=== PATIENT | male | born 1995 | race Two or more races ===

== ENCOUNTER 2017-01-09 12:40 | Emergency (ER) | payer OTHER ==
[2017-01-09 12:50] VITALS: BP 107/67
[2017-01-09 14:25] LABS: RAPID STREP SCREEN REAGENT QC YELLOW (YELLOW)
[2017-01-09] MEDS ORDERED: BENZONATATE 100 MG CAPSULE PO STA (14:30)
[2017-01-09] MEDS ORDERED: OXYMETAZOLINE NASAL SPRAY NAS STA (14:30)
[2017-01-09] MEDS ORDERED: IBUPROFEN 400 MG TABLET PO STA (14:30)
[2017-01-09] MEDS ORDERED: BENZONATATE 100 MG CAPSULE PO ONE (14:44)
[2017-01-09] MEDS ORDERED: IBUPROFEN 400 MG TABLET PO ONE (14:44)
[2017-01-09] MEDS ORDERED: OXYMETAZOLINE NASAL SPRAY NAS ONE (14:45)
--- NOTE | 2017-01-09 16:51 | ED Physician Documentation ---
History of Present Illness - Stated complaint Stated Complaint: FLU LIKE SYMPTOMS - Chief complaint Chief Complaint: General - Additonal information Additional information: hx from pt 21 y/o AD [place] male to ER with fever myalgias congestion sinus pressure sore throat and mild cough for a few days some NV no diarrhea no foreign travel, no sick contacts Review of Systems Constitutional: reports: Fever, Myalgias Nose: reports: Congestion Throat: reports: Sore throat Respiratory: reports: Cough GI: reports: Nausea. denies: Diarrhea Immunocompromised: denies: Immunocompromised PD PAST MEDICAL HISTORY - Past Medical History Past Medical History: No - Past Surgical History Past Surgical History: No - Present Medications Home Medications: Ambulatory Orders Medication Instructions Recorded Confirmed Benzonatate [Tessalon] 100 mg PO TID PRN #20 capsule 01/09/17 Oxymetazoline HCl [Afrin] 2 spray NS BID PRN #1 bottle 01/09/17 - Allergies Allergies/Adverse Reactions: Allergies Allergy/AdvReac Type Severity Reaction Status Date / Time No Known Drug Allergies Allergy Verified 01/09/17 12:50 - Social History Does the pt smoke?: Yes Smoking Status: Current every day smoker Does the pt drink ETOH?: Yes ETOH Use: Beer, Liquor Does the pt have substance abuse?: No - Immunizations Immunizations are current?: Yes - POLST Patient has POLST: No PD ED PE NORMAL - Vitals Vital signs reviewed: Yes - General General: Alert and oriented X 3 - HEENT HEENT: PERRL, Ears normal, Moist mucous membranes, Other (nasla congestion, no focal sinus TTP or swelling). No: Pharynx benign (erythema no exudate) - Neck Neck: Supple, no meningeal sign - Cardiac Cardiac: RRR - Respiratory Respiratory: No respiratory distress, Clear bilaterally Results - Vitals Vitals: Vital Signs - 24 hr 01/09/17 12:47 Temperature 37.1 C Heart Rate 105 H Respiratory 16 Rate Blood Pressure 107/67 O2 Saturation 99 Oxygen O2 Source Room air - Labs Labs: Laboratory Tests 01/09/17 13:30 Group A Strep Rapid Negative Departure - Departure Disposition: 01 Home, Self Care Clinical Impression: URI (upper respiratory infection) Qualifiers: URI type: unspecified viral URI Qualified Code(s): J06.9 - Acute upper respiratory infection, unspecified; B97.89 - Other viral agents as the cause of diseases classified elsewhere Condition: Good Instructions: ED URI Viral Follow-Up: [facility] [Provider Group] Prescriptions: Oxymetazoline HCl [Afrin] 2 spray NS BID PRN #1 bottle PRN Reason: nasal sinus ear congestion Benzonatate [Tessalon] 100 mg PO TID PRN #20 capsule PRN Reason: to ease cough Comments: The rapid strep test came back negative - an official culture will be run too Your lungs sound clear - I do not think you have pneumonia You have sinus congestion but no evidence of a sinus infection requiring antibiotics Recommend afrin nose spray (one spray each nostril twice a day for up to three days) and tessalon to ease your cough and tylenol and motrin for fever and body aches. I wrote a note for you to be off work two days Rest and drink plenty of fluids Please follow up with [facility] medical Friday for a recheck if not better Return to the ER sooner if worse Forms: Activity restrictions
== END 2017-01-09 16:59 | disposition home or self-care (01) ==
LOC: ED 12:40
DX: J06.9 Acute upper respiratory infection, unspecified (principal); B97.89 Other viral agents as the cause of diseases classified elsewhere; F17.200 Nicotine dependence, unspecified, uncomplicated
CPT/HCPCS: 87070; 87430; 99283; A9270

== ENCOUNTER 2023-08-10 21:35 | Inpatient (IN) | payer OTHER ==
--- NOTE | 2023-08-10 21:45 | ED Physician Documentation ---
PD HPI ABD PAIN - Stated complaint Stated Complaint: ABD PX - Chief complaint Chief Complaint: Abd Pain - History obtained from History obtained from: Patient - Additional information Additional information: HPI from patient. Patient complains of 1 to 2 days of abdominal pain, predominant across the lower abdomen and most notable in the right lower quadrant. The patient says that the sensation approximated that if previous bouts of constipation, and thus he was trying p.o. laxatives (per patient's description, sounds like he was using magnesium citrate), but this did not lead to any improvement. He denies fever, he has had some mild nausea but no vomiting. No past abdominal surgical history. Pain is worse with movement, palpation. Review of Systems Constitutional: denies: Fever, Chills, Sweats Cardiac: reports: Reviewed and negative Respiratory: reports: Reviewed and negative GI: reports: Abdominal Pain, Nausea. denies: Vomiting, Constipation, Diarrhea : denies: Dysuria PD PAST MEDICAL HISTORY - Past Medical History Past Medical History: Yes Respiratory: Asthma - Past Surgical History Past Surgical History: No - Present Medications Home Medications: Ambulatory Orders Medication Instructions Recorded Confirmed Benzonatate [Tessalon] 100 mg PO TID PRN #20 capsule 01/09/17 08/11/23 Oxymetazoline HCl [Afrin] 2 spray NS BID PRN #1 bottle 01/09/17 08/11/23 Albuterol [Proventil Hfa] See Rx Instructions .ROUTE 08/11/23 08/11/23 .COMPLEX PRN Fluticasone Propion/Salmeterol See Rx Instructions .ROUTE .COMPLEX 08/11/23 08/11/23 [Wixela 100-50 Inhub] - Allergies Allergies/Adverse Reactions: Allergies Allergy/AdvReac Type Severity Reaction Status Date / Time No Known Drug Allergies Allergy Verified 08/10/23 21:41 - Social History Does the pt smoke?: Yes Smoking Status: Current every day smoker Does the pt drink ETOH?: Yes Does the pt have substance abuse?: No - Immunizations Immunizations are current?: Yes - POLST Patient has POLST: No PD ED PE NORMAL - Vitals Vital signs reviewed: Yes - General General: Alert and oriented X 3, No acute distress, Well developed/nourished - Cardiac Cardiac: RRR, No murmur - Respiratory Respiratory: No respiratory distress, Clear bilaterally - Abdomen Abdomen: Soft, Non distended - Back Back: No CVA TTP - Derm Derm: Normal color, Warm and dry PD ED PE EXPANDED - Abdomen Abdomen: Tender to palpation (RLQ tenderness with milder TTP epigastrium and RUQ), Guarding (voluntary guarding). No: Rebound Results - Vitals Vitals: Vital Signs - 24 hr 08/10/23 08/10/23 08/11/23 21:39 23:54 01:00 Temperature 36.2 C L Heart Rate 67 71 78 Respiratory 18 18 16 Rate Blood Pressure 125/73 129/71 135/75 H O2 Saturation 99 98 96 If not protocol : Oxygen Flow, liters/minute 08/11/23 08/11/23 08/11/23 03:00 04:49 05:34 Temperature 37.0 C 98.4 C H Heart Rate 93 128 H 140 H Respiratory 18 20 24 Rate Blood Pressure 129/72 122/77 123/87 H O2 Saturation 97 97 94 If not protocol : Oxygen Flow, liters/minute 08/11/23 08/11/23 08/11/23 06:25 06:37 07:06 Temperature 38.5 C H 98.4 C H 38.1 C H Heart Rate 144 H 140 H 138 H Respiratory 22 24 22 Rate Blood Pressure 114/58 L 123/87 H 93/44 L O2 Saturation 93 94 95 If not protocol 2 2 : Oxygen Flow, liters/minute 08/11/23 07:26 Temperature Heart Rate 130 H Respiratory 26 H Rate Blood Pressure 87/40 L O2 Saturation 96 If not protocol 2 : Oxygen Flow, liters/minute Oxygen O2 Source Nasal cannula - Labs Labs: Laboratory Tests 08/10/23 08/10/23 22:00 22:00 WBC 12.6 H RBC 4.83 Hgb 15.0 Hct 43.6 MCV 90.3 MCH 31.1 H MCHC 34.4 RDW 12.3 Plt Count 298 MPV 9.9 Neut # (Auto) 10.3 H Lymph # (Auto) 1.1 L [place] # (Auto) 1.0 Eos # (Auto) 0.1 Baso # (Auto) 0.1 Absolute Nucleated RBC 0.00 Nucleated RBC % 0.0 Sodium 135 Potassium 3.8 Chloride 101 Carbon Dioxide 27 Anion Gap 7.0 BUN 10 Creatinine 1.0 Estimated GFR (MDRD) 88 L Glucose 104 Calcium 9.7 Total Bilirubin 1.5 H AST 14 ALT 16 Alkaline Phosphatase 41 L Total Protein 7.2 Albumin 4.5 Globulin 2.7 Albumin/Globulin Ratio 1.7 Lipase 29 - Rads (name of study) CT A/P with IV contrast Relevant Findings:: Prelim report reviewed, See rad report PD Medical Decision Making - ED course Complexity details: reviewed results, re-evaluated patient, considered differential, d/w patient ED course: Patient presents with H&P consistent with appendicitis, and the CT scan of the abdomen and pelvis has findings of "acute appendicitis with possible perforation. no periappendiceal abscess identified. Trace pelvic fluid" (per radiologist's interpretation). Initially, he is given Toradol without improvement. Subsequently, he is given 4 mg IV morphine but this also did not give any analgesia. Thus, he is subsequently given 1 mg IV Dilaudid; this had good effect on his pain (per patient report). He required several more doses over the course of long ED stay (while awaiting OR availability). He is kept n.p.o. throughout his ED stay, given IV maintenance fluids (150 cc/h of normal saline). I contacted the surgeon on-call for [facility] (Dr. Ferris). She entered orders into [facility] although there are no beds available at this time so he is thus kept in the emergency department overnight. Plan is to take the patient to the OR in the morning. Late in his ED stay, the patient did spike a fever which improved after IV Ofirmev. Departure - Departure Disposition: ED Transfer to [facility] Clinical Impression: Appendicitis Condition: Stable Discharge Date/Time: 08/11/23 07:33
[2023-08-10] MEDS: SODIUM CHLORIDE 0.9% 1,000 ML IV STA (22:08)
[2023-08-10] MEDS: KETOROLAC 15 MG/ML VIAL IVP STA (22:08)
[2023-08-10 22:18] LABS: BASOPHILS # (AUTO) 0.1 10^3/uL (0.0-0.1); BASOPHILS % (AUTO) 0.4 %; EOSINOPHILS # (AUTO) 0.1 10^3/uL (0.0-0.7); EOSINOPHILS % (AUTO) 1.1 %; HCT - HEMATOCRIT 43.6 % (42.0-52.0); LYMPHOCYTES # (AUTO) 1.1 10^3/uL (1.5-3.5); LYMPHOCYTES % (AUTO) 8.9 %; MEAN CORPUSCULAR HEMOGLOBIN 31.1 pg (27.0-31.0); MEAN CORPUSCULAR HGB CONC 34.4 g/dL (32.0-36.0); MEAN CORPUSCULAR VOLUME 90.3 fL (80.0-94.0); MEAN PLATELET VOLUME 9.9 fL (7.4-11.4); MONOCYTES % (AUTO) 7.9 %; NEUTROPHILS # (AUTO) 10.3 10^3/uL (1.5-6.6); NEUTROPHILS % (AUTO) 81.4 %; PLT - PLATELET COUNT 298 10^3/uL (130-450); RED BLOOD COUNT 4.83 10^6/uL (4.70-6.10); RED CELL DISTRIBUTION WIDTH 12.3 % (12.0-15.0); WHITE BLOOD COUNT 12.6 x10^3/uL (4.8-10.8)
[2023-08-10 22:35] LABS: ALBUMIN 4.5 g/dL (3.2-5.5); ALBUMIN/GLOBULIN RATIO 1.7 (1.0-2.2); BILIRUBIN,TOTAL 1.5 mg/dL (0.2-1.0); CALCIUM 9.7 mg/dL (8.5-10.3); POTASSIUM 3.8 mmol/L (3.5-4.5); TOTAL PROTEIN 7.2 g/dL (6.4-8.9)
[2023-08-10] MEDS ORDERED: iohexoL-300 100 ML VIAL ONE (22:35)
[2023-08-10] MEDS: MORPHINE 2 MG/ML CARPUJECT IVP STA (22:39)
[2023-08-10] MEDS: iohexoL-300 100 ML VIAL IVP ONE (23:56)
--- NOTE | 2023-08-11 01:04 | CT Report ---
PROCEDURE: Abdomen/Pelvis W INDICATIONS: abd pain CONTRAST: 100 ML OMNI 300 TECHNIQUE: After the administration of intravenous contrast, a CT scan of the abdomen and pelvis was performed. Images were recorded and evaluated at appropriate window settings. Reformats: coronal and sagittal. F or radiation dose reduction, the following was used: automated exposure control, adjustment of mA and /or kV according to patient size. COMPARISON: None. FINDINGS: Image quality: Diagnostic. Lower chest: Unremarkable. Liver: No solid mass. Gallbladder and biliary tree: No radiopaque stones or wall thickening. No biliary dilation. Spleen: No splenomegaly. Pancreas: No pancreatic ductal dilation. Adrenals: No adrenal nodule. Kidneys and ureters: Nonobstructing right inferior pole 8 mm calculus (HU 1000). No hydronephrosis. N o renal cystic lesion which requires follow up. No solid mass. Stomach, bowel and peritoneum: Dilated appendix in the right lower quadrant with surrounding fat stra nding and inflammatory changes. No periappendiceal fluid collection. Query asymmetric enhancement of the appendiceal wall and possible extraluminal gas, which may represent perforation. Lymph nodes: No central or retroperitoneal adenopathy. Vessels: No infrarenal aortic aneurysm. PELVIS Reproductive organs: Unremarkable. Bladder: No abnormal wall thickening, accounting for underdistention. Pelvic lymph nodes: No pelvic adenopathy by size criteria. Bones: No aggressive osseous abnormality. Other: No significant ventral or inguinal hernia. Trace free fluid in the pelvis. IMPRESSION: Acute appendicitis with possible perforation. No periappendiceal abscess identified. Trace pelvic flu id. Right inferior pole 8 mm nonobstructing calculus. No hydronephrosis. Reviewed by: Vivian Payne MD, PhD on 08/11/2023 1:02 AM PDT Approved by: Vivian Payne MD, PhD on 08/11/2023 1:02 AM PDT Station ID: [id number]
[2023-08-11] MEDS: PIPERACILLIN/TAZOBACTAM 4.5 GM in SODIUM CHLORIDE 0.9% MINIBAG 100 ML IV STA (01:25)
[2023-08-11] MEDS: HYDROmorphone 1 MG/ML CARPUJECT IVP STA ×3 (01:31→05:34)
[2023-08-11] MEDS ORDERED: ONDANSETRON 4 MG/2 ML VIAL IVP PRN ×2 (01:35→08:09)
[2023-08-11] MEDS: SODIUM CHLORIDE 0.9% 1,000 ML IV STA (04:52)
--- NOTE | 2023-08-11 06:20 | SURGERY HX AND PHYSICAL(T) ---
Surgical History & Physical - Chief Complaint/HPI Chief Complaint: abdominal pain History of Present Illness: 28yoM with migratory RLQ pain x2 days, associated with nausea and anorexia but no emesis. Initially felt he was constipated but pain worsened despite with laxative. Endorses more mild similar episodes in the past that were likely GI upset. Associated right flank pain but denies dysuria. Denies diarrhea or blood in stools. - PMH/PSH/Social Hx Does the pt have a hx of MRSA?: No Neurological History: None Eyes, Ears, Nose, Throat: None Cardiovascular: None Respiratory: Asthma Skin: None Endocrine/Autoimmune: None Gastrointestinal: None Urinary: None Musculoskeletal: None Blood Disorders: None Psychiatric: None PSH Other: NONE Smoking Status: Current every day smoker Does the pt drink ETOH?: Yes Frequency: Occasional Does the pt have substance abuse?: No - Family Hx Family Hx: Unremarkable - Home Meds and Allergies Home Medications: Albuterol [Proventil Hfa] See Rx Instructions .ROUTE .COMPLEX PRN 08/11/23 Fluticasone Propion/Salmeterol [Wixela 100-50 Inhub] See Rx Instructions .ROUTE .COMPLEX 08/11/23 Allergies/Adverse Reactions: Allergies Allergy/AdvReac Type Severity Reaction Status Date / Time No Known Drug Allergies Allergy Verified 08/10/23 21:41 - Review of Systems Constitutional: Poor appetite HEENT: No: Headaches, Visual changes, Eye pain, Dysphasia, Sinus congestion, Post nasal drip, Sore throat, Other Skin: No: Cyanosis, Jaundice, Mottled, Pallor, Diaphoresis, Dryness, Bruising, Puritis, Rash, Other Cardiac: No: AFIB, CAD, CHF, HTN, LA, Syncope, Hyperlipidemia, Mitral valve stenosis, Aortic stenosis, Valve insufficiency, Pulmonary hypertension Respiratory: No: Shortness of breath, Cough, Sputum, Other Gastrointestinal: Nausea, Abdominal pain Gentinourinary: Flank pain (right flank) Neurological: No: Dizziness, Headache, Numbness, Syncope, Tingling, Weakness, Urinary changes, Bowel changes, Other Musculoskeletal: No: Muscle pain, Back pain, Joint pain or stiffness, Other Hematologic: No: Anemia, Bleeding or bruising, Other Psychiatric: No: Depression, Anxiety, Other Endocrinologic: No: Sweating, Cold or heat intolerances, Polyuria, Polydipsia, Other Allergies: No: Asthma, Hives, Eczema, Rhinitis, Other - Vital Signs Heart Rate: 140 Blood Pressure: 123/87 Temperature: 98.4 C Respiratory Rate: 24 O2 Saturation: 94 Weight (kg): 90.809 kg Height: 1.7 m - Physical Exam General Appearance: positive: No acute distress, Alert Eyes Bilatera: positive: Normal inspection ENT: positive: ENT inspection nml Neck: positive: Nml inspection Respiratory: positive: Chest non-tender Cardiovascular: positive: Tachycardia Peripheral Pulses: positive: 2+ Abdomen: positive: No distention, Tenderness (RLQ ttp, negative rebound, negative rosvings) Back: positive: Nml inspection Skin: positive: Color nml Extremities: positive: Non-tender Neurologic/Psychiatric: positive: Oriented x3 - Patient Review Patient Review: Problems were reviewed with the patient during this visit. Medications were reviewed with the patient during this visit. Allergies were reviewed this patient during this visit. Pertinent Tests Reviewed: All pertitent test for this patient were reviewed. - Assessment & Plan Assessment and Plan: Labs: WBC 12.6 with left shift; creatinine/electrolytes WNL CT abdomen/pelvis with IV contrast - dilated inflammed appendix with some fluid in the pelvis 28yoM with acute appendicitis with 2d history of migratory pain. H&P, Labs and CT consistent with acute appendicitis. Initially afebrile and normal hemodynamics. Since admission overnight has become febrile and tachycardic to 140s, getting 2nd liter of crystalloid now. Discussed diagnosis as well as treatment options to include surgery vs antibiotics, including risk of recurrence with antibiotics. Discussed risks of surgery to include pain, bleeding, infection, damage to surrounding structures, need for bowel resection, or conversion to open. He understands and agrees to proceed with surgery. - zosyn started - crystalloid resuscitation in ED - to OR this morning for laparoscopic appendectomy Maddison Ferris DO FACS General Surgeon
[2023-08-11] MEDS: SODIUM CHLORIDE 0.9% 1,000 ML IV ONE (06:22)
[2023-08-11] MEDS: ACETAMINOPHEN 1,000 MG/100 ML 1,000 MG/100 ML BAG IV ONE (06:32)
[2023-08-11] MEDS ORDERED: BUPIVACAINE 0.25% PF 10 ML VIAL ONE (06:57)
[2023-08-11] MEDS: BUPIVACAINE 0.25% PF 30 ML VIAL SUBQ ONE (07:15)
[2023-08-11] MEDS ORDERED: ONDANSETRON 4 MG/2 ML VIAL ONE (07:29)
[2023-08-11] MEDS ORDERED: PROPOFOL 200 MG/20 ML VIAL IVP ONE (07:29)
[2023-08-11] MEDS ORDERED: fentaNYL 100 MCG/2 ML VIAL ONE (07:29)
[2023-08-11] MEDS ORDERED: DEXAMETHASONE 4 MG/ML VIAL ONE (07:29)
[2023-08-11] MEDS ORDERED: LIDOCAINE-PF 2% 10 ML AMP SUBQ ONE (07:29)
[2023-08-11] MEDS ORDERED: MIDAZOLAM 2 MG/2 ML VIAL ONE (07:29)
[2023-08-11] MEDS ORDERED: ROCURONIUM 50 MG/5 ML VIAL ONE ×2 (07:29→08:03)
[2023-08-11] MEDS ORDERED: ceFAZolin 1 GM VIAL ONE (07:59)
--- NOTE | 2023-08-11 08:01 | XRAY Report ---
PROCEDURE: Chest 1V INDICATIONS: chest pain TECHNIQUE: One view of the chest was acquired. COMPARISON: None. FINDINGS: Surgical changes and devices: None. Lungs and pleura: No pleural effusions or pneumothorax. Poor inspiratory effort is seen. Possible at electasis versus small infiltrate in the left retrocardiac region. Mediastinum: Mediastinal contours appear normal. Heart size is normal. Bones and chest wall: No suspicious bony lesions. Overlying soft tissues appear unremarkable. IMPRESSION: Poor inspiratory effort. Suggestion of small infiltrate versus atelectasis in left retrocardiac regio n. Right lung is clear. No pleural effusion or pneumothorax.. Findings are concordant with preliminary interpretation provided by [facility]. Reviewed by: Eduar Chidlress MD on 08/11/2023 8:00 AM PDT Approved by: Eduar Childress MD on 08/11/2023 8:00 AM PDT Station ID: [id number]
[2023-08-11] MEDS ORDERED: ePHEDrine 50 MG/ML VIAL IVP PRN (08:09)
[2023-08-11] MEDS ORDERED: ATROPINE ABBOJECT 1 MG/10 ML SYRINGE IVP PRN (08:09)
[2023-08-11] MEDS ORDERED: METOCLOPRAMIDE 10 MG/2 ML VIAL IVP PRN (08:09)
[2023-08-11] MEDS ORDERED: MORPHINE 2 MG/ML CARPUJECT IVP PRN (08:09)
[2023-08-11] MEDS ORDERED: fentaNYL 100 MCG/2 ML VIAL IVP PRN (08:09)
[2023-08-11] MEDS ORDERED: HYDROmorphone 0.5 MG/0.5 ML SYRINGE IVP PRN (08:09)
[2023-08-11] MEDS ORDERED: NALOXONE 0.4 MG/ML VIAL IVP PRN (08:09)
--- NOTE | 2023-08-11 08:12 | ANESTHESIA ---
Pre-Anesthesia VS, & Labs - Diagnosis appendicitis - Procedure laparoscopic appendectomy Vital Signs: Temp Pulse Resp BP Pulse Ox O2 Flow Rate 38.1 C H 130 H 26 H 87/40 L 96 2 08/11/23 07:06 08/11/23 07:26 08/11/23 07:26 08/11/23 07:26 08/11/23 07:26 08/11/23 07:26 Height: 5 ft 7 in Weight (kg): 90.809 kg Body Mass Index: 31.3 BMI Classification: Obese - NPO >8 hours - Lab Results Current Lab Results: Laboratory Tests 08/10/23 22:00: Sodium 135, Potassium 3.8, Chloride 101, Carbon Dioxide 27, Anion Gap 7.0, BUN 10, Creatinine 1.0, Estimated GFR (MDRD) 88 L, Glucose 104, Calcium 9.7, Total Bilirubin 1.5 H, AST 14, ALT 16, Alkaline Phosphatase 41 L, Total Protein 7.2, Albumin 4.5, Globulin 2.7, Albumin/Globulin Ratio 1.7, Lipase 29 08/10/23 22:00: WBC 12.6 H, RBC 4.83, Hgb 15.0, Hct 43.6, MCV 90.3, MCH 31.1 H, MCHC 34.4, RDW 12.3, Plt Count 298, MPV 9.9, Neut # (Auto) 10.3 H, Lymph # (Auto) 1.1 L, [place] # (Auto) 1.0, Eos # (Auto) 0.1, Baso # (Auto) 0.1, Absolute Nucleated RBC 0.00, Nucleated RBC % 0.0 Fish Bones: 08/10/23 22:00 08/10/23 22:00 Home Medications and Allergies Home Medications: Ambulatory Orders Albuterol [Proventil Hfa] See Rx Instructions .ROUTE .COMPLEX PRN 08/11/23 Fluticasone Propion/Salmeterol [Wixela 100-50 Inhub] See Rx Instructions .ROUTE .COMPLEX 08/11/23 Active Medications Fentanyl (Fentanyl 100 Mcg/2 Ml Vial) 25 - 50 mcg IVP Q5M PRN PRN Reason: BREAKTHROUGH PAIN (2nd Choice) Stop: 08/12/23 08:09 Hydromorphone HCl (Hydromorphone 0.5 Mg/0.5 Ml Syringe) 0.2 - 0.6 mg IVP Q5M PRN PRN Reason: PAIN (First Choice) Stop: 08/12/23 08:09 Piperacillin Sod/Tazobactam (Sod 3.375 gm/ Sodium Chloride) 100 mls @ 200 mls/hr IV Q6H [facility] Lactated Ringer's (Lr) 1,000 mls @ 100 mls/hr IV .Q10H RANGEL Stop: 08/11/23 18:59 Morphine Sulfate (Morphine 2 Mg/Ml Carpuject) 2 mg IVP Q2HR PRN PRN Reason: Abdominal Pain Morphine Sulfate (Morphine 2 Mg/Ml Carpuject) 2 - 4 mg IVP Q5M PRN PRN Reason: PAIN (3rd Choice) Stop: 08/12/23 08:09 Ondansetron HCl (Ondansetron 4 Mg/2 Ml Vial) 4 mg IVP Q6HR PRN PRN Reason: Nausea / Vomiting Ondansetron HCl (Ondansetron 4 Mg/2 Ml Vial) 4 mg IVP ONCE PRN PRN Reason: N/V (First Choice) Stop: 08/12/23 08:09 Sodium Chloride (Sodium Chloride Flush 0.9% 10 Ml Syringe) 10 ml IVP PRN PRN PRN Reason: NEEDED PER PROVIDER ORDERS Sodium Chloride (Sodium Chloride Flush 0.9% 10 Ml Syringe) 10 ml IVP 0100,0900,1700 [facility] Albuterol [Proventil Hfa] See Rx Instructions .ROUTE .COMPLEX PRN 08/11/23 Fluticasone Propion/Salmeterol [Wixela 100-50 Inhub] See Rx Instructions .ROUTE .COMPLEX 08/11/23 Allergies/Adverse Reactions: Allergies Allergy/AdvReac Type Severity Reaction Status Date / Time No Known Drug Allergies Allergy Verified 08/10/23 21:41 Anes History & Medical History - Anesthetic History Anesthesia Complications: reports: No previous complications - Medical History Cardiovascular: reports: None Pulmonary: reports: Asthma Gastrointestinal: reports: None Urinary: reports: Kidney stones Neuro: reports: None Musculoskeletal: reports: None Endocrine/Autoimmune: reports: None Blood Disorders: reports: None Skin: reports: None Smoking Status: Former smoker History of Cancer?: No - Surgical History Other Past Surgical History: NONE Exam General: Alert, Oriented x3 Dental: WNL Mouth Opening: Greater than 4 Fingerbreadths Neck Mobility: Normal Mallampati classification: II Thyromental Distance: greater than 6 cm Respiratory: Lungs clear Cardiovascular: Regular rate Plan Anesthesia Type: General Consent for Procedure(s) Verified and Reviewed: Yes Code Status: Attempt Resuscitation ASA classification: 2-Mild systemic disease Is this case an emergency?: Yes
[2023-08-11] MEDS ORDERED: LACTATED RINGERS 1,000 ML IV SCH ×2 (09:00→10:27)
[2023-08-11] MEDS ORDERED: SUGAMMADEX 200 MG/2 ML VIAL IVP ONE (09:20)
[2023-08-11] MEDS ORDERED: KETOROLAC 30 MG/ML VIAL ONE (09:43)
[2023-08-11] MEDS: LACTATED RINGERS 400 ML IV ONE (10:02)
--- NOTE | 2023-08-11 10:12 | OPERATIVE REPORT ---
Operative Report - General Planned Procedure: Laparoscopic appendectomy Pre-Op Diagnosis: Acute appendicitis Procedure Performed: 1. Laparoscopic appendectomy 2. Partial cecectomy Post Op Diagnosis: 1. Acute perforated appendicitis 2. Feculant peritonitis - Procedure Note Primary Surgeon: Maddison Ferris DO Anesthesia Provider: Charmaine Parker CRNA Anesthesia Technique: General ET tube Pathology: Appendix IV Fluids (mL): 2,400 (crystalloid) Estimated Blood Loss (mL): 25 Urine Output (mL): 450 (delacruz out at end of case) Drain/Tube Type: Neil Swanson flat drain (in RLQ) Indications: 28yoM presented with acute appendicitis to ED, became tachycardic and febrile within hour before surgery. Findings: Feculant peritonitis, appendiceal rupture at base with resultant near in situ avulsion from cecum. Appendix removed with ligasure and resultant cecotomy at site of rupture was stapled across with 60mm green load. Complications: none - Other Other Information/Narrative: The patient was brought to the operating room where universal protocol was observed. He was placed supine on the operating room table, with delacruz and left arm tucked. General anesthesia was induced with ETT. The abdomen was clipped prepped and draped in standard fashion. A time out was performed. Local anesthetic was injected at the umbilicus and a transverse infraumbililcal skin incision was made sharply. The umbilical stalk was elevated and the fascia was incised vertically, the peritoneum was entered with a juan clamp and a 12mm balloon trocar was placed into the peritoneal cavity. The abdomen was insufflated with CO2 gas to a pressure of 15 mmHg which the patient tolerated well. The laparoscope was inserted. 2 additional 5 mm trocars were placed under direct visualization in the left lower quadrant and the suprapubic position. Laparoscopic bowel graspers were introduced into the abdomen. The abdomen was seen to have feculent peritonitis with purulent fluid over the liver and the right upper quadrant as well as in the pelvis. Using careful blunt dissection as well as the LigaSure device and the suction director patient accounting the appendix was slowly and carefully freed from its attachments to the anterior abdominal wall the terminal ileum as well as the cecum. An inflammatory rind on the anterior aspect of the cecum was opened revealing a 1 cm perforation at the base of the appendix that had nearly avulsed to the appendix from the cecum in situ. The appendix was transected the remainder of the way and the mesoappendix was divided likewise with the LigaSure device, placed into an Endo Catch bag and removed removed through the umbilical port. The cecotomy from the in situ avulsion of the appendix was visualized with stool extruding through the cecotomy. The cecotomy was grasped with a bowel grasper and pulled through the jaws of a 60 mm stapler with a green load and a partial cecectomy was completed in order to close the cecotomy. The staple line was inspected and noted to be hemostatic as well as a intact closure of the cecotomy. At this point the feculent and purulent fluid in the abdomen was irrigated and suctioned with 3 L of normal saline focusing on the right upper quadrant above the liver the right colic gutter and the pelvis. The irrigant was returning clear serosanguineous fluid at the completion of irrigation. A 10 mm flat CYNTHIA drain was placed through the suprapubic port with the drain lying in the right lower quadrant and pelvis beneath the partial cecectomy staple line. The drain was sutured in place with 2-0 nylon at the skin. The remaining trocars were removed under direct visualization. The fascia at the umbilical incision was closed with [id number] 0 Vicryl suture. The umbilical wound was irrigated with 150 cc of clean normal saline. Hemostasis within the umbilical wound was ensured with Bovie electrocautery. The skin at the umbilical wound and the left lower quadrant trocar site were both closed with carl and covered with gauze and Tegaderm dressing. The Delacruz was removed. The patient was awoken from general anesthesia. There were no complications. The patient was transferred to the PACU in good condition. Maddison Ferris DO, FACS General Surgeon
--- NOTE | 2023-08-11 10:32 | ANESTHESIA POST OP EVALUATION ---
Anesthesia Post Eval - Post Anesthesia Eval Vitals: Last Vital Signs Temp 36.9 C 08/11/23 10:05 Pulse 107 H 08/11/23 10:25 Resp 20 08/11/23 10:25 BP 91/49 L 08/11/23 10:25 Pulse Ox 98 08/11/23 10:25 O2 Flow Rate 2 08/11/23 07:26 CV Function Including HR & BP: Stable Pain Control: Satisfactory Nausea & Vomiting: Negative Mental Status: Baseline Respiratory Status: Airway Patent Hydration Status: Satisfactory Anesthesia Complications: None
[2023-08-11] MEDS: SODIUM CHLORIDE FLUSH 0.9% 10 ML SYRINGE IVP SCH (11:42)
[2023-08-11] MEDS: PIPERACILLIN/TAZOBACTAM 3.375 GM in SODIUM CHLORIDE 0.9% MINIBAG 100 ML IV SCH (11:42)
[2023-08-11] MEDS: LACTATED RINGERS 1,000 ML IV SCH (12:16)
[2023-08-11] MEDS: MORPHINE 2 MG/ML CARPUJECT IVP PRN (15:10)
[2023-08-11] MEDS: ACETAMINOPHEN 1,000 MG/100 ML 1,000 MG/100 ML BAG IV PRN (16:35)
[2023-08-11] MEDS: HYDROmorphone 0.5 MG/0.5 ML SYRINGE IVP PRN (21:00)
[2023-08-11] MEDS: ALBUTEROL NEB 2.5 MG/3 ML INH PRN (22:18)
[2023-08-12 03:19] LABS: BASOPHILS % (AUTO) 0.4 %; HCT - HEMATOCRIT 41.1 % (42.0-52.0); HGB - HEMOGLOBIN 13.5 g/dL (14.0-18.0); LYMPHOCYTES # (AUTO) 0.6 10^3/uL (1.5-3.5); LYMPHOCYTES % (AUTO) 6.7 %; MEAN CORPUSCULAR HEMOGLOBIN 30.3 pg (27.0-31.0); MEAN CORPUSCULAR HGB CONC 32.8 g/dL (32.0-36.0); MEAN CORPUSCULAR VOLUME 92.2 fL (80.0-94.0); MEAN PLATELET VOLUME 9.4 fL (7.4-11.4); MONOCYTES # (AUTO) 0.7 10^3/uL (0.0-1.0); MONOCYTES % (AUTO) 7.6 %; NEUTROPHILS # (AUTO) 7.2 10^3/uL (1.5-6.6); NEUTROPHILS % (AUTO) 85.1 %; PLT - PLATELET COUNT 202 10^3/uL (130-450); RED BLOOD COUNT 4.46 10^6/uL (4.70-6.10); RED CELL DISTRIBUTION WIDTH 12.5 % (12.0-15.0); WHITE BLOOD COUNT 8.5 x10^3/uL (4.8-10.8)
[2023-08-12 03:36] LABS: ALBUMIN 3.4 g/dL (3.2-5.5); ALBUMIN/GLOBULIN RATIO 1.5 (1.0-2.2); BILIRUBIN,TOTAL 1.6 mg/dL (0.2-1.0); POTASSIUM 4.1 mmol/L (3.5-4.5); TOTAL PROTEIN 5.7 g/dL (6.4-8.9)
[2023-08-12] MEDS: KETOROLAC 15 MG/ML VIAL IVP SCH (04:30)
--- NOTE | 2023-08-12 10:01 | PROVIDER PROGRESS NOTE ---
Subjective - General Admit Date: 08/11/23 Procedure Date: 08/11/23 Post Op Days: 1 Procedure Performed: Laparoscopic appendectomy - Review of Systems Wound/Incisions: positive: Dressing dry and intact Drain Type: CYNTHIA drain Drain Output Description: seropurulent Approximate mls Output: 360cc General: positive: Fever HEENT: positive: No symptoms Pulmonary: positive: No symptoms Cardiovascular: positive: No symptoms Gastrointestinal: positive: Abdominal pain (appropriate degree of postoperative abdominal pain, no peritonitis). negative: Nausea Genitourinary: positive: No symptoms Musculoskeletal: positive: No symptoms Skin: positive: No symptoms - Other Other Information/Narrative: Has had intermittent tachycardia/fever since operation yesterday for acute perforated appendicitis with feculant peritonitis. Normotensive and adequate # voids. Abdominal pain is minimal/within expected, denies nausea, and CYNTHIA drain has 360 of seropurulent fluid out. Pain overnight has improved with addition of dilaudid and toradol (hgb was stable on overnight check). Objective - Patient Data Reviewed Vital Signs: Yes Vital Signs: Vital Signs x48h Temp Pulse Resp BP Pulse Ox O2 Flow Rate 08/12/23 07:39 36.5 C 08/12/23 07:31 36.4 C L 102 H 20 102/52 L 98 2.5 08/12/23 04:10 38.7 C H 127 H 24 103/65 92 3 08/12/23 02:47 92 2 08/12/23 02:42 38.6 C H 125 H 22 114/62 89 L Weight: Weight 08/10/23 08/11/23 08/12/23 23:59 23:59 23:59 Weight (kg) 90.809 kg 90.9 kg Intake & Output: Intake and Output Totals x24h 08/10/23 08/11/23 08/12/23 23:59 23:59 23:59 Intake Total 3600 1200 Output Total 310 55 Balance 3290 1145 - Lab Results Lab Results: 08/12/23 03:13 08/12/23 03:13 Other Lab Results: Lab Results x24hrs 08/12/23 08/12/23 Range/Units 03:13 03:13 WBC 8.5 (4.8-10.8) x10^3/uL RBC 4.46 L (4.70-6.10) 10^6/uL Hgb 13.5 L (14.0-18.0) g/dL Hct 41.1 L (42.0-52.0) % MCV 92.2 (80.0-94.0) fL MCH 30.3 (27.0-31.0) pg MCHC 32.8 (32.0-36.0) g/dL RDW 12.5 (12.0-15.0) % Plt Count 202 (130-450) 10^3/uL MPV 9.4 (7.4-11.4) fL Neut # (Auto) 7.2 H (1.5-6.6) 10^3/uL Lymph # (Auto) 0.6 L (1.5-3.5) 10^3/uL [place] # (Auto) 0.7 (0.0-1.0) 10^3/uL Eos # (Auto) 0.0 (0.0-0.7) 10^3/uL Baso # (Auto) 0.0 (0.0-0.1) 10^3/uL Absolute Nucleated RBC 0.00 x10^3/uL Nucleated RBC % 0.0 /100WBC Sodium 138 (135-145) mmol/L Potassium 4.1 (3.5-4.5) mmol/L Chloride 106 (101-111) mmol/L Carbon Dioxide 27 (21-32) mmol/L Anion Gap 5.0 L (6-13) BUN 8 (6-20) mg/dL Creatinine 1.0 (0.6-1.3) mg/dL Estimated GFR (MDRD) 88 L (>89) Glucose 97 (74-104) mg/dL Calcium 9.0 (8.5-10.3) mg/dL Total Bilirubin 1.6 H (0.2-1.0) mg/dL AST 10 (10-42) IU/L ALT 10 (10-60) IU/L Alkaline Phosphatase 33 L (42-121) IU/L Total Protein 5.7 L (6.4-8.9) g/dL Albumin 3.4 (3.2-5.5) g/dL Globulin 2.3 (2.1-4.2) g/dL Albumin/Globulin Ratio 1.5 (1.0-2.2) - Current Medications Current Medications: Current Medications Generic Name Dose Route Start Last Admin Trade Name Freq PRN Reason Stop Dose Admin Albuterol 2.5 mg 08/11/23 12:21 08/11/23 22:18 Albuterol Neb 2.5 Mg/3 Ml INH 2.5 mg RTQ4H PRN Administration Wheezing Hydromorphone HCl 0.2 mg 08/11/23 19:37 08/12/23 09:11 Hydromorphone 0.5 Mg/0.5 Ml Syringe IVP 0.2 mg Q2H PRN Administration Severe Pain (Level 6-10) Piperacillin Sod/Tazobactam 100 mls @ 200 mls/hr 08/11/23 09:00 08/12/23 09:34 Sod 3.375 gm/ Sodium Chloride IV 200 mls/hr Q6H RANGEL Administration Acetaminophen 1,000 mg in 100 mls @ 400 mls/hr 08/11/23 10:22 08/12/23 09:07 Acetaminophen IV 08/13/23 10:31 400 mls/hr Q6HR PRN Administration Severe Pain (Level 7-10) Lactated Ringer's 1,000 mls @ 125 mls/hr 08/11/23 13:00 08/12/23 01:07 Lr IV 125 mls/hr .Q8H RANGEL Administration Ketorolac Tromethamine 15 mg 08/12/23 04:01 08/12/23 09:10 Ketorolac 15 Mg/Ml Vial IVP 08/18/23 04:00 Not Given Q8HR RANGEL Sodium Chloride 10 ml 08/11/23 09:00 08/12/23 09:34 Sodium Chloride Flush 0.9% 10 Ml Syringe IVP Not Given 0100,0900,1700 [facility] - Physical Exam Wound/Incisions: positive: Dressing dry and intact General Appearance: positive: No acute distress, Alert Respiratory: positive: Chest non-tender, No respiratory distress, Breath sounds nml Cardiovascular: positive: Regular rate & rhythm (intermittent tachycardia) Abdomen: positive: No distention, Tenderness Skin: positive: Color nml, No rash, Warm, Dry Extremities: positive: Non-tender Neurologic/Psychiatric: positive: Oriented x3, Mood/affect nml ABX Reporting Has patient been on IV antibiotics over the past 48 hours?: Yes Impression/Plan - Problem List Problem List: 28yoM POD1 s/p laparoscopic appendectomy (partial cecectomy) for acute per forated appendicitis with feculent peritonitis. Intermitted tachycardia and fever but maintaining pressures and voiding adequately. Fevers and tachycardia not unexpected in setting of feculent peritonitis. Though he is at increased risk of abscess formation or stapleline leak in this setting, his adequately managed pain and CYNTHIA drain output are reassuring at this time. WBC normal, hgb stable, creatinine/lytes WNL. - Trials of clear liquids today - continue IV zosyn for feculant peritonitis - pain control with scheduled offirmev and toradol (will transition to IV once proves tolerating diet), prn oxycodone, prn dilaudid - prn zofran - start dvt ppx with lovenox today, continue SCDs - IS every hour and ambulation TID - continue CYNTHIA drain Maddison Ferris DO, FACS General Surgeon
[2023-08-12] MEDS: ENOXAPARIN 40 MG/0.4 ML SYRINGE SUBQ SCH (11:47)
[2023-08-12] MEDS: oxyCODONE 5 MG TABLET PO PRN (12:25)
[2023-08-12] MEDS ORDERED: ACETAMINOPHEN 1,000 MG/100 ML 1,000 MG/100 ML BAG IV SCH (23:45)
[2023-08-12] MEDS ORDERED: ACETAMINOPHEN 1,000 MG/100 ML 1,000 MG/100 ML BAG IV PRN (23:49)
[2023-08-13] MEDS: ACETAMINOPHEN 1,000 MG/100 ML 1,000 MG/100 ML BAG IV SCH (00:32)
[2023-08-13 07:52] LABS: BASOPHILS % (AUTO) 0.1 %; EOSINOPHILS % (AUTO) 0.3 %; HCT - HEMATOCRIT 39.4 % (42.0-52.0); HGB - HEMOGLOBIN 13.4 g/dL (14.0-18.0); LYMPHOCYTES # (AUTO) 0.9 10^3/uL (1.5-3.5); LYMPHOCYTES % (AUTO) 8.7 %; MEAN CORPUSCULAR HEMOGLOBIN 30.9 pg (27.0-31.0); MEAN CORPUSCULAR VOLUME 90.8 fL (80.0-94.0); MEAN PLATELET VOLUME 9.1 fL (7.4-11.4); MONOCYTES # (AUTO) 0.9 10^3/uL (0.0-1.0); MONOCYTES % (AUTO) 7.8 %; NEUTROPHILS # (AUTO) 8.9 10^3/uL (1.5-6.6); NEUTROPHILS % (AUTO) 82.1 %; PLT - PLATELET COUNT 224 10^3/uL (130-450); RED BLOOD COUNT 4.34 10^6/uL (4.70-6.10); RED CELL DISTRIBUTION WIDTH 12.4 % (12.0-15.0); WHITE BLOOD COUNT 10.9 x10^3/uL (4.8-10.8)
[2023-08-13 08:07] LABS: ALBUMIN 3.1 g/dL (3.2-5.5); ALBUMIN/GLOBULIN RATIO 1.3 (1.0-2.2); BILIRUBIN,TOTAL 1.3 mg/dL (0.2-1.0); CALCIUM 8.8 mg/dL (8.5-10.3); CREATININE 1.1 mg/dL (0.6-1.3); POTASSIUM 3.9 mmol/L (3.5-4.5); TOTAL PROTEIN 5.5 g/dL (6.4-8.9)
[2023-08-13] MEDS ORDERED: diphenhydrAMINE 25 MG CAPSULE PO PRN (08:42)
--- NOTE | 2023-08-13 08:45 | PROVIDER PROGRESS NOTE ---
Subjective - General Admit Date: 08/11/23 Procedure Date: 08/11/23 Post Op Days: 2 Procedure Performed: Laparoscopic appendectomy - Review of Systems Wound/Incisions: positive: Dressing dry and intact Drain Type: CYNTHIA drain Drain Output Description: light serous with scant debris Approximate mls Output: 55cc General: positive: Fever HEENT: positive: Headaches Pulmonary: positive: No symptoms Cardiovascular: positive: No symptoms Gastrointestinal: positive: Abdominal pain (appropriate degree of postoperative abdominal pain, no peritonitis). negative: Nausea Genitourinary: positive: No symptoms Musculoskeletal: positive: No symptoms Skin: positive: No symptoms - Other Other Information/Narrative: 24hr events: Minimal abdominal pain yesterday daytime, tolerated 620cc clears without n/v, did have a BM. Ambulated a few times. Overnight was febrile with tachycardia to 110-120s again, associated with headache, though otherwise continues to be normotensive with adequate UOP (700cc + x3 voids) and on room air. The CYNTHIA drain output has cleared considerably - 600 of serous fluid with scant purulent debris as expected. Objective - Patient Data Reviewed Vital Signs: Yes Vital Signs: Vital Signs x48h Temp Pulse Resp BP Pulse Ox 08/13/23 07:27 38 C H 120 H 28 H 123/80 94 08/13/23 05:36 38.4 C H 120 H 24 95 08/13/23 04:45 37.1 C 112 H 20 126/80 96 08/13/23 03:22 37.4 C 08/13/23 01:00 38.6 C H 105/65 Weight: Weight 08/11/23 08/12/23 08/13/23 23:59 23:59 23:59 Weight (kg) 90.9 kg Intake & Output: Intake and Output Totals x24h 08/11/23 08/12/23 08/13/23 23:59 23:59 23:59 Intake Total 3600 3820 1700 Output Total 310 105 930 Balance 3290 3715 770 - Lab Results Lab Results: 08/13/23 07:47 08/13/23 07:47 Other Lab Results: Lab Results x24hrs 08/13/23 08/13/23 Range/Units 07:47 07:47 WBC 10.9 H (4.8-10.8) x10^3/uL RBC 4.34 L (4.70-6.10) 10^6/uL Hgb 13.4 L (14.0-18.0) g/dL Hct 39.4 L (42.0-52.0) % MCV 90.8 (80.0-94.0) fL MCH 30.9 (27.0-31.0) pg MCHC 34.0 (32.0-36.0) g/dL RDW 12.4 (12.0-15.0) % Plt Count 224 (130-450) 10^3/uL MPV 9.1 (7.4-11.4) fL Neut # (Auto) 8.9 H (1.5-6.6) 10^3/uL Lymph # (Auto) 0.9 L (1.5-3.5) 10^3/uL [place] # (Auto) 0.9 (0.0-1.0) 10^3/uL Eos # (Auto) 0.0 (0.0-0.7) 10^3/uL Baso # (Auto) 0.0 (0.0-0.1) 10^3/uL Absolute Nucleated RBC 0.00 x10^3/uL Nucleated RBC % 0.0 /100WBC Sodium 136 (135-145) mmol/L Potassium 3.9 (3.5-4.5) mmol/L Chloride 106 (101-111) mmol/L Carbon Dioxide 25 (21-32) mmol/L Anion Gap 5.0 L (6-13) BUN 9 (6-20) mg/dL Creatinine 1.1 (0.6-1.3) mg/dL Estimated GFR (MDRD) 79 L (>89) Glucose 95 (74-104) mg/dL Calcium 8.8 (8.5-10.3) mg/dL Total Bilirubin 1.3 H (0.2-1.0) mg/dL AST 8 L (10-42) IU/L ALT 8 L (10-60) IU/L Alkaline Phosphatase 36 L (42-121) IU/L Total Protein 5.5 L (6.4-8.9) g/dL Albumin 3.1 L (3.2-5.5) g/dL Globulin 2.4 (2.1-4.2) g/dL Albumin/Globulin Ratio 1.3 (1.0-2.2) - Current Medications Current Medications: Current Medications Generic Name Dose Route Start Last Admin Trade Name Freq PRN Reason Stop Dose Admin Albuterol 2.5 mg 08/11/23 12:21 08/12/23 21:42 Albuterol Neb 2.5 Mg/3 Ml INH 2.5 mg RTQ4H PRN Administration Wheezing Enoxaparin Sodium 40 mg 08/12/23 10:00 08/12/23 11:47 Enoxaparin 40 Mg/0.4 Ml Syringe SUBQ 40 mg DAILY RANGEL Administration Hydromorphone HCl 0.2 mg 08/11/23 19:37 08/13/23 08:02 Hydromorphone 0.5 Mg/0.5 Ml Syringe IVP 0.2 mg Q2H PRN Administration Severe Pain (Level 6-10) Piperacillin Sod/Tazobactam 100 mls @ 200 mls/hr 08/11/23 09:00 08/13/23 03:56 Sod 3.375 gm/ Sodium Chloride IV Infused Q6H RANGEL Infusion Lactated Ringer's 1,000 mls @ 125 mls/hr 08/11/23 13:00 08/13/23 05:42 Lr IV 125 mls/hr .Q8H RANGEL Administration Acetaminophen 1,000 mg in 100 mls @ 400 mls/hr 08/13/23 00:10 08/13/23 01:10 Acetaminophen IV 08/16/23 10:31 Infused Q8HR RANGEL Infusion Ketorolac Tromethamine 15 mg 08/12/23 04:01 08/13/23 05:41 Ketorolac 15 Mg/Ml Vial IVP 08/18/23 04:00 15 mg Q8HR RANGEL Administration Oxycodone HCl 5 mg 08/12/23 09:52 08/13/23 08:01 Oxycodone 5 Mg Tablet PO 5 mg Q4HR PRN Administration Moderate Pain (Level 4-6) Sodium Chloride 10 ml 08/11/23 09:00 08/13/23 00:32 Sodium Chloride Flush 0.9% 10 Ml Syringe IVP 10 ml 0100,0900,1700 RANGEL Administration - Physical Exam Wound/Incisions: positive: Healing well, Dressing dry and intact (Guaze/tege removed from lap incisions, carl intact. CYNTHIA drain as documented above, with scant serous fluid draining around the drain.) General Appearance: positive: No acute distress Respiratory: positive: Chest non-tender, No respiratory distress, Breath sounds nml Cardiovascular: positive: Regular rate & rhythm Abdomen: positive: No distention, Tenderness (minimal/appropriate postop tenderness.). negative: Guarding, Rebound Skin: positive: Color nml, No rash, Warm, Dry Neurologic/Psychiatric: positive: Oriented x3, Mood/affect nml ABX Reporting Has patient been on IV antibiotics over the past 48 hours?: Yes Impression/Plan - Problem List Problem List: 28yoM POD2 s/p laparoscopic appendectomy for acute perforated appendicitis with feculent peritonitis. Overall, his recovery is progressing as expected. Continued fevers and associated tachycardia in the early postop period is not unexpected given the feculent peritonitis. I believe he is adequately resuscitated as he remains normotensive with adequate UOP and normal creatinine despite the tachycardia. There is a likewise no evidence of postop bleeding with a stable hgb and clear CYNTHIA drainage, and normotension. Though he is at risk of staple line leak, his CYNTHIA drain output is very reassuring against this at this time, and his exam reveals generalized mild postop abdominal tenderness and NOT focal sever RLQ ttp - again reassuring against a leak. Additionally, he has a normal WBC. He will remain at risk for a postoperative abscess, though it is too soon to obtain an interval CT scan to assess for this - if he continues to be febrile/tachycardic by POD 4-5, will obtain a CT. - continue clear liquids today, may trial regular diet if his appetite increases - strict I/Os, particularly UOP - scheduled IV acetaminophen and toradol - prn oxycodone and prn dilaudid - continue ambulation and IS, SCDs - continue lovenox ppx - daily CBC/Chemistry - continue IV zosyn - continue CYNTHIA drain, strip drain tubing when emptying Maddison Ferris DO, FACS General Surgeon
[2023-08-14] MEDS: SODIUM CHLORIDE FLUSH 0.9% 10 ML SYRINGE IVP PRN (03:40)
[2023-08-14 05:31] LABS: BASOPHILS % (AUTO) 0.2 %; EOSINOPHILS # (AUTO) 0.1 10^3/uL (0.0-0.7); EOSINOPHILS % (AUTO) 0.4 %; HCT - HEMATOCRIT 37.4 % (42.0-52.0); HGB - HEMOGLOBIN 12.3 g/dL (14.0-18.0); LYMPHOCYTES % (AUTO) 9.2 %; MEAN CORPUSCULAR HEMOGLOBIN 30.3 pg (27.0-31.0); MEAN CORPUSCULAR HGB CONC 32.9 g/dL (32.0-36.0); MEAN CORPUSCULAR VOLUME 92.1 fL (80.0-94.0); MEAN PLATELET VOLUME 9.4 fL (7.4-11.4); MONOCYTES # (AUTO) 1.2 10^3/uL (0.0-1.0); MONOCYTES % (AUTO) 10.2 %; NEUTROPHILS # (AUTO) 8.8 10^3/uL (1.5-6.6); NEUTROPHILS % (AUTO) 78.3 %; PLT - PLATELET COUNT 245 10^3/uL (130-450); RED BLOOD COUNT 4.06 10^6/uL (4.70-6.10); RED CELL DISTRIBUTION WIDTH 12.6 % (12.0-15.0); WHITE BLOOD COUNT 11.3 x10^3/uL (4.8-10.8)
[2023-08-14 05:50] LABS: ALBUMIN 2.9 g/dL (3.2-5.5); CALCIUM 8.6 mg/dL (8.5-10.3); CREATININE 1.1 mg/dL (0.6-1.3); POTASSIUM 3.8 mmol/L (3.5-4.5); TOTAL PROTEIN 5.9 g/dL (6.4-8.9)
--- NOTE | 2023-08-14 07:32 | PROVIDER PROGRESS NOTE ---
Subjective - General Admit Date: 08/11/23 Procedure Date: 08/11/23 Post Op Days: 3 Procedure Performed: Laparoscopic appendectomy - Review of Systems Wound/Incisions: positive: Healing well, Dressing dry and intact (Guaze/tege removed from lap incisions, carl intact. CYNTHIA drain as documented above, with scant serous fluid draining around the drain.) Drain Type: CYNTHIA drain Drain Output Description: serous Approximate mls Output: 10cc General: positive: Fever Pulmonary: positive: No symptoms Cardiovascular: positive: No symptoms Gastrointestinal: positive: Abdominal pain (appropriate degree of postoperative abdominal pain, no peritonitis). negative: Nausea, Vomiting Genitourinary: positive: No symptoms Musculoskeletal: positive: No symptoms Skin: positive: No symptoms - Other Other Information/Narrative: 24hr events: Fever/tachycardia curve improving, remains normotensive, on room air, ambulating, 2.9L UOP. Tolerated >2L clear liquids without nausea. CYNTHIA drain with just 10cc clear/serous fluid. Objective - Patient Data Reviewed Vital Signs: Yes Vital Signs: Vital Signs x48h Temp Pulse Resp BP Pulse Ox 08/14/23 05:30 36.4 C L 08/14/23 03:49 36.5 C 103 H 18 109/65 94 08/14/23 01:29 37.7 C 125 H 20 08/14/23 00:21 37.4 C 124 H 20 132/81 H Intake & Output: Intake and Output Totals x24h 08/12/23 08/13/23 08/14/23 23:59 23:59 23:59 Intake Total 3820 4890.916 1597.084 Output Total 105 2290 1320 Balance 3715 2600.916 277.084 - Lab Results Lab Results: 08/14/23 04:55 08/14/23 04:55 Other Lab Results: Lab Results x24hrs 08/14/23 08/14/23 08/13/23 Range/Units 04:55 04:55 07:47 WBC 11.3 H (4.8-10.8) x10^3/uL RBC 4.06 L (4.70-6.10) 10^6/uL Hgb 12.3 L (14.0-18.0) g/dL Hct 37.4 L (42.0-52.0) % MCV 92.1 (80.0-94.0) fL MCH 30.3 (27.0-31.0) pg MCHC 32.9 (32.0-36.0) g/dL RDW 12.6 (12.0-15.0) % Plt Count 245 (130-450) 10^3/uL MPV 9.4 (7.4-11.4) fL Neut # (Auto) 8.8 H (1.5-6.6) 10^3/uL Lymph # (Auto) 1.0 L (1.5-3.5) 10^3/uL [place] # (Auto) 1.2 H (0.0-1.0) 10^3/uL Eos # (Auto) 0.1 (0.0-0.7) 10^3/uL Baso # (Auto) 0.0 (0.0-0.1) 10^3/uL Absolute Nucleated RBC 0.00 x10^3/uL Nucleated RBC % 0.0 /100WBC Sodium 136 136 (135-145) mmol/L Potassium 3.8 3.9 (3.5-4.5) mmol/L Chloride 105 106 (101-111) mmol/L Carbon Dioxide 25 25 (21-32) mmol/L Anion Gap 6.0 5.0 L (6-13) BUN 9 9 (6-20) mg/dL Creatinine 1.1 1.1 (0.6-1.3) mg/dL Estimated GFR (MDRD) 79 L 79 L (>89) Glucose 111 H 95 (74-104) mg/dL Calcium 8.6 8.8 (8.5-10.3) mg/dL Total Bilirubin 1.0 1.3 H (0.2-1.0) mg/dL AST 9 L 8 L (10-42) IU/L ALT 9 L 8 L (10-60) IU/L Alkaline Phosphatase 40 L 36 L (42-121) IU/L Total Protein 5.9 L 5.5 L (6.4-8.9) g/dL Albumin 2.9 L 3.1 L (3.2-5.5) g/dL Globulin 3.0 2.4 (2.1-4.2) g/dL Albumin/Globulin Ratio 1.0 1.3 (1.0-2.2) 04/03/24 Range/Units 07:47 WBC 10.9 H (4.8-10.8) x10^3/uL RBC 4.34 L (4.70-6.10) 10^6/uL Hgb 13.4 L (14.0-18.0) g/dL Hct 39.4 L (42.0-52.0) % MCV 90.8 (80.0-94.0) fL MCH 30.9 (27.0-31.0) pg MCHC 34.0 (32.0-36.0) g/dL RDW 12.4 (12.0-15.0) % Plt Count 224 (130-450) 10^3/uL MPV 9.1 (7.4-11.4) fL Neut # (Auto) 8.9 H (1.5-6.6) 10^3/uL Lymph # (Auto) 0.9 L (1.5-3.5) 10^3/uL [place] # (Auto) 0.9 (0.0-1.0) 10^3/uL Eos # (Auto) 0.0 (0.0-0.7) 10^3/uL Baso # (Auto) 0.0 (0.0-0.1) 10^3/uL Absolute Nucleated RBC 0.00 x10^3/uL Nucleated RBC % 0.0 /100WBC Sodium (135-145) mmol/L Potassium (3.5-4.5) mmol/L Chloride (101-111) mmol/L Carbon Dioxide (21-32) mmol/L Anion Gap (6-13) BUN (6-20) mg/dL Creatinine (0.6-1.3) mg/dL Estimated GFR (MDRD) (>89) Glucose (74-104) mg/dL Calcium (8.5-10.3) mg/dL Total Bilirubin (0.2-1.0) mg/dL AST (10-42) IU/L ALT (10-60) IU/L Alkaline Phosphatase (42-121) IU/L Total Protein (6.4-8.9) g/dL Albumin (3.2-5.5) g/dL Globulin (2.1-4.2) g/dL Albumin/Globulin Ratio (1.0-2.2) - Current Medications Current Medications: Current Medications Generic Name Dose Route Start Last Admin Trade Name Freq PRN Reason Stop Dose Admin Albuterol 2.5 mg 08/11/23 12:21 08/13/23 21:11 Albuterol Neb 2.5 Mg/3 Ml INH 2.5 mg RTQ4H PRN Administration Wheezing Enoxaparin Sodium 40 mg 08/12/23 10:00 08/13/23 08:52 Enoxaparin 40 Mg/0.4 Ml Syringe SUBQ 40 mg DAILY RANGEL Administration Hydromorphone HCl 0.2 mg 08/11/23 19:37 08/13/23 10:10 Hydromorphone 0.5 Mg/0.5 Ml Syringe IVP 0.2 mg Q2H PRN Administration Severe Pain (Level 6-10) Piperacillin Sod/Tazobactam 100 mls @ 200 mls/hr 08/11/23 09:00 08/14/23 04:10 Sod 3.375 gm/ Sodium Chloride IV Infused Q6H RANGEL Infusion Oxycodone HCl 5 mg 08/12/23 09:52 08/14/23 01:28 Oxycodone 5 Mg Tablet PO 5 mg Q4HR PRN Administration Moderate Pain (Level 4-6) Sodium Chloride 10 ml 08/11/23 01:35 08/14/23 03:40 Sodium Chloride Flush 0.9% 10 Ml Syringe IVP 10 ml PRN PRN Administration NEEDED PER PROVIDER ORDERS Sodium Chloride 10 ml 08/11/23 09:00 08/14/23 05:23 Sodium Chloride Flush 0.9% 10 Ml Syringe IVP 10 ml 0100,0900,1700 [facility] Administration - Physical Exam Wound/Incisions: positive: Healing well, Other (CYNTHIA drain removed on rounds.) General Appearance: positive: No acute distress, Alert Respiratory: positive: Chest non-tender, No respiratory distress, Breath sounds nml Cardiovascular: positive: Regular rate & rhythm (intermittent tachycardia overall downtrending) Abdomen: positive: Tenderness (minimal diffuse tenderness, no focal RLQ ttp). negative: No distention, Guarding, Rebound Skin: positive: Color nml, No rash, Warm, Dry Extremities: positive: Non-tender, Full ROM, Nml appearance Neurologic/Psychiatric: positive: Oriented x3, Mood/affect nml ABX Reporting Has patient been on IV antibiotics over the past 48 hours?: Yes Impression/Plan - Problem List Problem List: 1. Acute perforated appendicitis with feculent peritonitis POD3 s/p laparoscopic appendectomy (partial cecectomy). Downtrending curve of intermitted fever/tachycardia. Pain well controlled on scheduled IV tylenol and toradol, just x1 oxy and x1 dilaudid last 24hrs. Tolerated >2L clears yesterday without nausea. Remains normotensive with robust UOP, serous CYNTHIA output. WBC up to 11 from 10, hgb stable, creatinine/lytes WNL. - regular diet - dc IVF - change scheduled iv tylenol and toradol to scheduled PO tylenol and ibuprofen today - continue prn oxycodone and dilaudid for breakthrough pain - continue IV zosyn, trend WBC tomorrow with AM cbc/chem - CYNTHIA drain removed on rounds - continue ambulation, SCDs, IS, lovenox ppx - if fever >101.4 today, will obtain blood cx - if WBC up further tomorrow will obtain interval CT abdomen to eval for abscess; if WBC stable or down will transition to PO augmentin Maddison Ferris DO FACS General Surgeon
[2023-08-14] MEDS: ACETAMINOPHEN 500 MG TABLET PO SCH (10:42)
[2023-08-14] MEDS: IBUPROFEN 800 MG TABLET PO SCH (14:10)
[2023-08-14] MEDS: SIMETHICONE CHEW 80 MG TABLET PO PRN (17:57)
[2023-08-15 05:56] LABS: BASOPHILS % (AUTO) 0.4 %; EOSINOPHILS # (AUTO) 0.2 10^3/uL (0.0-0.7); EOSINOPHILS % (AUTO) 2.1 %; HCT - HEMATOCRIT 39.1 % (42.0-52.0); HGB - HEMOGLOBIN 12.8 g/dL (14.0-18.0); LYMPHOCYTES # (AUTO) 1.1 10^3/uL (1.5-3.5); LYMPHOCYTES % (AUTO) 13.6 %; MEAN CORPUSCULAR HGB CONC 32.7 g/dL (32.0-36.0); MEAN CORPUSCULAR VOLUME 91.8 fL (80.0-94.0); MEAN PLATELET VOLUME 9.2 fL (7.4-11.4); MONOCYTES # (AUTO) 1.2 10^3/uL (0.0-1.0); MONOCYTES % (AUTO) 14.5 %; NEUTROPHILS # (AUTO) 5.6 10^3/uL (1.5-6.6); NEUTROPHILS % (AUTO) 68.4 %; PLT - PLATELET COUNT 252 10^3/uL (130-450); RED BLOOD COUNT 4.26 10^6/uL (4.70-6.10); WHITE BLOOD COUNT 8.2 x10^3/uL (4.8-10.8)
[2023-08-15 06:14] LABS: ALBUMIN 3.1 g/dL (3.2-5.5); ALBUMIN/GLOBULIN RATIO 0.9 (1.0-2.2); BILIRUBIN,TOTAL 0.7 mg/dL (0.2-1.0); CREATININE 0.9 mg/dL (0.6-1.3); POTASSIUM 3.8 mmol/L (3.5-4.5); TOTAL PROTEIN 6.5 g/dL (6.4-8.9)
--- NOTE | 2023-08-15 08:06 | PROVIDER PROGRESS NOTE ---
Subjective - General Admit Date: 08/11/23 Procedure Date: 08/11/23 Post Op Days: 4 Procedure Performed: Laparoscopic appendectomy - Review of Systems Wound/Incisions: positive: Healing well, Other (CYNTHIA drain removed on rounds.) General: positive: Fever HEENT: positive: Headaches Pulmonary: positive: No symptoms Cardiovascular: positive: No symptoms Gastrointestinal: positive: Abdominal pain (minimal, at incisions). negative: Nausea, Vomiting Genitourinary: positive: No symptoms Musculoskeletal: positive: No symptoms Skin: positive: No symptoms - Other Other Information/Narrative: 24hr events: CYNTHIA drain removed yesterday. Advanced to regular diet - appetite not robust but tolerated without n/v. Some flatus, no BM. normotensive with good UOP, though still fevering with associated tachycardia. Objective - Patient Data Reviewed Vital Signs: Yes Vital Signs: Vital Signs x48h Temp Pulse Pulse Resp BP Pulse Ox 08/15/23 05:27 36.4 C L 83 20 111/74 95 08/15/23 00:26 117 H 20 Intake & Output: Intake and Output Totals x24h 08/13/23 08/14/23 08/15/23 23:59 23:59 23:59 Intake Total 4890.916 4157.084 100 Output Total 2290 2395 Balance 2600.916 1762.084 100 - Lab Results Lab Results: 08/15/23 05:36 08/15/23 05:36 Other Lab Results: Lab Results x24hrs 08/15/23 08/15/23 Range/Units 05:36 05:36 WBC 8.2 (4.8-10.8) x10^3/uL RBC 4.26 L (4.70-6.10) 10^6/uL Hgb 12.8 L (14.0-18.0) g/dL Hct 39.1 L (42.0-52.0) % MCV 91.8 (80.0-94.0) fL MCH 30.0 (27.0-31.0) pg MCHC 32.7 (32.0-36.0) g/dL RDW 13.0 (12.0-15.0) % Plt Count 252 (130-450) 10^3/uL MPV 9.2 (7.4-11.4) fL Neut # (Auto) 5.6 (1.5-6.6) 10^3/uL Lymph # (Auto) 1.1 L (1.5-3.5) 10^3/uL Walker # (Auto) 1.2 H (0.0-1.0) 10^3/uL Eos # (Auto) 0.2 (0.0-0.7) 10^3/uL Baso # (Auto) 0.0 (0.0-0.1) 10^3/uL Absolute Nucleated RBC 0.00 x10^3/uL Nucleated RBC % 0.0 /100WBC Sodium 139 (135-145) mmol/L Potassium 3.8 (3.5-4.5) mmol/L Chloride 106 (101-111) mmol/L Carbon Dioxide 26 (21-32) mmol/L Anion Gap 7.0 (6-13) BUN 8 (6-20) mg/dL Creatinine 0.9 (0.6-1.3) mg/dL Estimated GFR (MDRD) 99 (>89) Glucose 102 (74-104) mg/dL Calcium 9.0 (8.5-10.3) mg/dL Total Bilirubin 0.7 (0.2-1.0) mg/dL AST 19 (10-42) IU/L ALT 22 (10-60) IU/L Alkaline Phosphatase 61 (42-121) IU/L Total Protein 6.5 (6.4-8.9) g/dL Albumin 3.1 L (3.2-5.5) g/dL Globulin 3.4 (2.1-4.2) g/dL Albumin/Globulin Ratio 0.9 L (1.0-2.2) - Current Medications Current Medications: Current Medications Generic Name Dose Route Start Last Admin Trade Name Freq PRN Reason Stop Dose Admin Acetaminophen 1,000 mg 08/14/23 10:00 08/15/23 06:07 Acetaminophen 500 Mg Tablet PO 1,000 mg Q8HR RANGEL Administration Albuterol 2.5 mg 08/11/23 12:21 08/15/23 00:24 Albuterol Neb 2.5 Mg/3 Ml INH 2.5 mg RTQ4H PRN Administration Wheezing Enoxaparin Sodium 40 mg 08/12/23 10:00 08/14/23 08:29 Enoxaparin 40 Mg/0.4 Ml Syringe SUBQ 40 mg DAILY RANGEL Administration Hydromorphone HCl 0.2 mg 08/11/23 19:37 08/13/23 10:10 Hydromorphone 0.5 Mg/0.5 Ml Syringe IVP 0.2 mg Q2H PRN Administration Severe Pain (Level 6-10) Piperacillin Sod/Tazobactam 100 mls @ 200 mls/hr 08/11/23 09:00 08/15/23 03:52 Sod 3.375 gm/ Sodium Chloride IV Infused Q6H RANGEL Infusion Ibuprofen 800 mg 08/14/23 14:00 08/15/23 06:07 Ibuprofen 800 Mg Tablet PO 800 mg Q8HR RANGEL Administration Oxycodone HCl 5 mg 08/12/23 09:52 08/15/23 00:20 Oxycodone 5 Mg Tablet PO 5 mg Q4HR PRN Administration Moderate Pain (Level 4-6) Simethicone 80 mg 08/14/23 17:15 08/14/23 17:57 Simethicone Chew 80 Mg Tablet PO 80 mg BID PRN Administration gas pain Sodium Chloride 10 ml 08/11/23 01:35 08/14/23 03:40 Sodium Chloride Flush 0.9% 10 Ml Syringe IVP 10 ml PRN PRN Administration NEEDED PER PROVIDER ORDERS Sodium Chloride 10 ml 08/11/23 09:00 08/15/23 00:22 Sodium Chloride Flush 0.9% 10 Ml Syringe IVP 10 ml 0100,0900,1700 RANGEL Administration - Physical Exam Wound/Incisions: positive: Healing well, Dressing dry and intact General Appearance: positive: No acute distress, Alert Respiratory: positive: Chest non-tender, No respiratory distress, Breath sounds nml Cardiovascular: positive: Tachycardia Abdomen: positive: No distention, Tenderness (minimal, at incisions). negative: Guarding, Rebound Skin: positive: Color nml, No rash, Warm, Dry Extremities: positive: Non-tender, Full ROM, Nml appearance Neurologic/Psychiatric: positive: Oriented x3, Mood/affect nml ABX Reporting Has patient been on IV antibiotics over the past 48 hours?: Yes Impression/Plan - Problem List Problem List: 1. Acute perforated appendicitis with feculent peritonitis POD4 s/p laparoscopic appendectomy (partial cecectomy). Still with intermitted fever/tachycardia. Pain well controlled on scheduled PO tylenol and motrin, just x1 oxy and x1 dilaudid last 24hrs. Tolerated regular diet yesterday without nausea, + flatus. Remains normotensive with good UOP. WBC down to 8 from 11, hgb stable, creatinine/lytes WNL. - regular diet, no IVF - scheduled PO tylenol and ibuprofen - continue prn oxycodone and dilaudid for breakthrough pain - continue IV zosyn, trend daily cbc/chem - blood cx from 4Apr pending - continue ambulation, SCDs, IS, lovenox ppx - if fevers/tachycardia not resolved in next 24-48 hrs, anticipate interval CT abdomen to eval for abscess - Dr. Sanchez to assume care of patient today, as I am leaving town Maddison Ferris DO, FACS General Surgeon
[2023-08-15] MEDS: CALAMINE/ZINC OXIDE 177 ML BOTTLE TOP PRN (19:25)
[2023-08-16 05:44] LABS: BASOPHILS % (AUTO) 0.3 %; EOSINOPHILS # (AUTO) 0.3 10^3/uL (0.0-0.7); EOSINOPHILS % (AUTO) 2.4 %; HCT - HEMATOCRIT 36.8 % (42.0-52.0); HGB - HEMOGLOBIN 12.5 g/dL (14.0-18.0); LYMPHOCYTES # (AUTO) 1.2 10^3/uL (1.5-3.5); MEAN CORPUSCULAR HEMOGLOBIN 30.3 pg (27.0-31.0); MEAN CORPUSCULAR VOLUME 89.3 fL (80.0-94.0); MEAN PLATELET VOLUME 9.1 fL (7.4-11.4); MONOCYTES # (AUTO) 1.2 10^3/uL (0.0-1.0); MONOCYTES % (AUTO) 10.7 %; NEUTROPHILS # (AUTO) 8.7 10^3/uL (1.5-6.6); NEUTROPHILS % (AUTO) 75.5 %; PLT - PLATELET COUNT 267 10^3/uL (130-450); RED BLOOD COUNT 4.12 10^6/uL (4.70-6.10); RED CELL DISTRIBUTION WIDTH 12.7 % (12.0-15.0); WHITE BLOOD COUNT 11.5 x10^3/uL (4.8-10.8)
[2023-08-16 06:00] LABS: ALBUMIN 3.1 g/dL (3.2-5.5); BILIRUBIN,TOTAL 0.6 mg/dL (0.2-1.0); CREATININE 0.9 mg/dL (0.6-1.3); POTASSIUM 3.7 mmol/L (3.5-4.5); TOTAL PROTEIN 6.3 g/dL (6.4-8.9)
--- NOTE | 2023-08-16 12:53 | Discharge Plan ---
Discharge Plan Problem Reviewed?: Yes Disposition: Home, Self Care Condition: Stable Prescriptions: oxyCODONE [Roxicodone] 5 mg PO Q6HR PRN #15 tablet PRN Reason: Abdominal Pain Amox/Clav 875/125 [Augmentin 875/125 Tab] 1 tablet PO Q12H 7 Days #14 tablet Diet: Soft Activity Restrictions: Activity as Tolerated Shower Restrictions: No Driving Restrictions: Yes (no driving while taking prescription pain pills) Health Concerns: recent ruptured appendix with stool in the abdomen Plan of Treatment: surgery performed. home on light diet and oral antibiotics Assessment: improving after surgery and iv antibiotics for ruptured appendicitis Additional Instructions or Follow Up instructions: call the surgery office and make an appointment call for fever over 101, continued nausea and vomiting [phone] No Smoking: If you smoke, Please STOP! Call for help. Follow-up with: Haseeb Sanchez MD [Provider Admit Priv/Credential] -
--- NOTE | 2023-08-16 12:57 | DISCHARGE SUMMARY ---
"Discharge Summary Admit Date: 08/11/23 Discharge Date: 08/16/23 Discharging Provider: juanita zeng Code Status: Attempt Resuscitation Condition at Discharge: Good Discharge Disposition: Home, Self Care [facility]charge [facility] - DIAGNOSES Admission Diagnoses: ruptured appendix with stool in abdomen and peritonitis Discharge Diagnoses with Status of Each Condition: home in good condition after surgery, drainage, iv abxs. tolerating diet, having bms, afebrile - HPI History of Present Illness: present with 2 days abdominal pain and ruptured appendix with stool in abdomen - CONSULTS | PROCEDURES Procedures: as above - HOSPITAL COURSE Hospital Course: slowly improved with fever resolving and return of bowel function - ALLERGIES Allergies/Adverse Reactions: Allergies Allergy/AdvReac Type Severity Reaction Status Date / Time No Known Drug Allergies Allergy Verified 08/10/23 21:41 - MEDICATIONS Home Medications: Ambulatory Orders Medication Instructions Recorded Confirmed Albuterol [Proventil Hfa] 2 puffs INH Q4H PRN 08/11/23 08/11/23 Fexofenadine HCl 180 mg PO DAILY PRN 08/11/23 08/11/23 Fluticasone Propion/Salmeterol 1 puffs INH BID 08/11/23 08/11/23 [Wixela 100-50 Inhub] Loratadine [Claritin] 10 mg PO DAILY PRN 08/11/23 08/11/23 Amox/Clav 875/125 [Augmentin 1 tablet PO Q12H 7 Days #14 tablet 08/16/23 875/125 Tab] oxyCODONE [Roxicodone] 5 mg PO Q6HR PRN #15 tablet 08/16/23 - PHYSICAL EXAM AT DISCHARGE General Appearance: positive: No acute distress, Alert Eyes Bilateral: positive: PERRL, EOMI ENT: positive: No signs of dehydration Neck: positive: No JVD, Trachea midline Respiratory: positive: No respiratory distress Abdomen: positive: Non-tender, No distention, Other (incision c/d/i no erythema) Neurologic/Psychiatric: positive: Oriented x3 - LABS Result Diagrams: 08/16/23 05:32 08/16/23 05:32 - FOLLOW UP Follow Up: call to make an appointment with the surgery office call for fever over 101, incision area redness [phone]"
[2023-08-16 13:08] VITALS: BP 127/75; O2SAT 94
== END 2023-08-16 13:57 | disposition home or self-care (01) | DRG 331 ==
LOC: ED 21:35 → MS2 08-11 01:35 → SDS 08-11 01:35 → MS2 08-11 01:36 → SDS 08-11 09:50 → MS2 08-11 09:50
PROVIDERS: ADMIT Surgery; ATTEND Surgery
PROC: 0DBH4ZZ Excision of Cecum, Percutaneous Endoscopic Approach (ICD-10-PCS; 2023-08-11)
PROC: 0DTJ4ZZ Resection of Appendix, Percutaneous Endoscopic Approach (ICD-10-PCS; principal; 2023-08-11 08:00)
DX: K35.32 Acute appendicitis with perforation, localized peritonitis, and gangrene, without abscess (principal); R00.0 Tachycardia, unspecified; J45.909 Unspecified asthma, uncomplicated; F17.200 Nicotine dependence, unspecified, uncomplicated
CPT/HCPCS: 36415; 71045; 74177; 80053; 83690; 85025; 87040; 94640; 96374; 96375; 99284; 99285; A9270; J0131; J1170; J1650; J7120; Q9967